=== PATIENT | female | born 1995 | race Caucasian/White ===

== ENCOUNTER 2018-05-14 18:21 | Emergency (ER) | payer BC ==
[2018-05-14 18:35] VITALS: BP 125/73
--- NOTE | 2018-05-14 18:40 | UC ---
Skin Complaint HPI - HPI Summary HPI Summary: 22 yo female presents with two bumps to her right neck. She tells me that her sister noticed these about a month or two ago and told pt. Pt had never noticed them before and left them alone. Today pt was doing her makeup and felt one of them and started trying to pop it and it became red and inflamed. She is curious as to what it is. Not getting larger, no pain or itch, no fever or chills. - History of Current Complaint Chief Complaint: UCSkin Time Seen by Provider: 05/14/18 18:39 Stated Complaint: SKIN COMPLAINT Hx Obtained From: Patient, Family/[employer] Hx Last Menstrual Period: 1 WEEK AGO Onset/Duration: Gradual Onset Pain Intensity: 0 - Allergy/Home Medications Allergies/Adverse Reactions: Allergies Allergy/AdvReac Type Severity Reaction Status Date / Time No Known Allergies Allergy Verified 05/14/18 18:35 Home Medications: Home Medications PARoxetine HCL TAB* [Paxil TAB*] 10 mg PO DAILY 05/14/18 [History Confirmed 07/28] PMH/Surg Hx/FS Hx/Imm Hx Psychological History: Anxiety Other History Of: Negative For: HIV, Hepatitis B, Hepatitis C, Anticoagulant Therapy - Surgical History Surgical History: Yes Surgery Procedure, Year, and Place: for urinary reflux at age 11 she had corrective surgery. - Family History Known Family History: Negative: Cardiac Disease, Hypertension, Diabetes - Social History Lives: With Family Alcohol Use: Occasionally Substance Use Type: None Smoking Status (MU): Never Smoked Tobacco Review of Systems All Other Systems Reviewed And Are Negative: Yes Constitutional: Positive: Negative Skin: Positive: Other - Bump on neck ENT: Positive: Negative Respiratory: Positive: Negative Cardiovascular: Positive: Negative Gastrointestinal: Positive: Negative Neurovascular: Positive: Negative Neurological: Positive: Negative Psychological: Positive: Negative Physical Exam - Summary Physical Exam Summary: GENERAL: NAD. WDWN. No pain distress. SKIN: Two flesh colored 2mm papules to right side of neck. NTTP. No edema, warmth, induration, erythema, or fluctuant material appreciated. NECK: Supple. Nontender. No lymphadenopathy. CHEST: No accessory muscle use. Breathing comfortably and in no distress. CV: Pulses intact. Cap refill <2seconds NEURO: Alert. PSYCH: Age appropriate behavior. Triage Information Reviewed: Yes Vital Signs: Initial Vital Signs Temp 98.8 F 05/14/18 18:31 Pulse 57 05/14/18 18:31 Resp 16 05/14/18 18:31 BP 125/73 05/14/18 18:31 Pulse Ox 100 05/14/18 18:31 Vital Signs Reviewed: Yes Course/Dx - Course Course Of Treatment: I suspect these lesions are simple cysts. Pt was reassured. Advised to f/u with dermatology if she would like these treated or removed. - Diagnoses Provider Diagnosis: Benign skin cyst Discharge - Sign-Out/Discharge Documenting (check all that apply): Patient Departure All imaging exams completed and their final reports reviewed: No Studies - Discharge Plan Condition: Stable Disposition: HOME Referrals: Rafael Biggs MD [Medical Doctor] - If Needed Kiley Alvares MD [Primary Care Provider] - Additional Instructions: If you develop a fever, shortness of breath, chest pain, new or worsening symptoms - please call your PCP or go to the ED. Try not to scratch or pick at your rash. - Billing Disposition and Condition Condition: STABLE Disposition: Home
== END 2018-05-14 18:58 | disposition home or self-care (01) ==
LOC: UCEAST 18:21
DX: L72.9 Follicular cyst of the skin and subcutaneous tissue, unspecified (principal)
CPT/HCPCS: 99211; G0463